=== PATIENT | male | born 1970 | race Hispanic/Latino ===

== ENCOUNTER 2017-10-30 12:33 | Outpatient (CLI) | payer OTHER ==
--- NOTE | 2017-10-30 14:38 | ULT ---
BILATERAL CAROTID DUPLEX ULTRASOUND WITH SPECTRAL ANALYSIS AND COLORFLOW EVALUATION: 10/30/2017 HISTORY: Dizziness. Syncope. FINDINGS: Degroot-scale, color-flow, Doppler evaluation, and spectral analysis of the bilateral carotid arteries i s performed with 2D imaging. No significant atherosclerotic plaque is seen in the carotid arteries b ilaterally. There is less than 50% maximal stenosis in the bilateral internal carotid arteries according to the p eak systolic velocities and the ICA/CCA ratios. The peak systolic velocity in the right ICA is 87.7 cm per second with an ICA/CCA ratio of 0.9. The peak systolic velocity in the left ICA is 86.3 cm pe r second with an ICA/CCA ratio of 0.9. Antegrade flow is demonstrated in the vertebral arteries bilaterally. IMPRESSION: No hemodynamically significant stenosis in the bilateral internal carotid arteries. POS: [facility]
== END 2017-10-30 12:34 | disposition home or self-care (01) ==
LOC: ULT 12:33
PROVIDERS: ATTEND Family Medicine
DX: R42 Dizziness and giddiness (principal); M34.9 Systemic sclerosis, unspecified; R55 Syncope and collapse; I07.1 Rheumatic tricuspid insufficiency
CPT/HCPCS: 93306; 93880

== ENCOUNTER 2018-11-22 08:37 | Emergency (ER) | payer OTHER, SELFPAY ==
--- NOTE | 2018-11-22 09:36 | RAD ---
FRONTAL VIEW CHEST: INDICATION: Dyspnea. FINDINGS: The lungs are clear of consolidation. There is no effusion or pneumothorax. Cardiac silhouette is n ormal in size. Osseous structures are intact. IMPRESSION: No focal consolidation. POS: [facility]
[2018-11-22 09:47] LABS: #Basophils 0.1 thou/uL (0.0-0.2); #Eosinphils 0.2 thou/uL (0.0-0.7); #Lymphocytes 1.2 thou/uL (1.20-3.40); #Monocytes 0.5 thou/uL (0.11-0.59); %Eosinophils 2.6 % (0.0-10.0); %Lymphocytes 17.2 % (21.0-51.0); %Monocytes 7.1 % (0.0-10.0); %Neutrophils 72.2 % (42.0-75.0); Hemoglobin 16.4 g/dL (14.0-18.0); Mean Corpuscular HGB CONC 34.3 g/dL (32.0-36.0); Mean Corpuscular Hemoglobin 31.2 pg (27.0-31.0); Mean Corpuscular Volume 91.1 fL (78.0-98.0); Platelet Count 246 thou/uL (130-400); Red Blood Cell (RBC) Count 5.25 mill/uL (4.70-6.10)
[2018-11-22 10:13] LABS: ALT (SGPT) 17 U/L (8-55); AST (SGOT) 18 U/L (5-34); Albumin 4.5 g/dL (3.5-5.0); Alkaline Phosphatase 95 U/L (40-110); Anion Gap 12 mmol/L (10-20); BUN (Urea Nitrogen) 13 mg/dL (8.9-20.6); Bilirubin, Total 0.5 mg/dL (0.2-1.2); CK (CPK) 110 U/L (30-200); CKMB 0.8 ng/mL (0-6.6); Calc. Creatinine Clearance 0 mL/min (70-130); Calcium 9.6 mg/dL (7.8-10.44); Carbon Dioxide 27 mmol/L (22-29); Chloride 103 mmol/L (98-107); Estimated GFR-MDRD 77; Globulin 2.6 g/dL (2.4-3.5); Glucose 101 mg/dL (70-105); Lipase 19 U/L (8-78); Potassium 4.3 mmol/L (3.5-5.1); Protein, Total 7.1 g/dL (6.0-8.3); Sodium 138 mmol/L (136-145)
[2018-11-22 12:21] LABS: Troponin I Less than 0.010 ng/mL (< 0.028)
--- NOTE | 2018-11-23 17:22 | EKG ---
Test Reason : Blood Pressure : / mmHG Vent. Rate : 082 BPM Atrial Rate : 082 BPM P-R Int : 152 ms QRS Dur : 106 ms QT Int : 344 ms P-R-T Axes : 000 -29 -26 degrees QTc Int : 401 ms Normal sinus rhythm Incomplete right bundle branch block Septal infarct , age undetermined Possible Lateral infarct , age undetermined Abnormal ECG Confirmed by AGUILAR HERNANDEZ, NISREEN ([id number]), restaurant expeditor GEOREG ASTORGA ([id number]) on 11/23/2018 5:22:19 PM Referred By: Confirmed By:NISREEN SHEIKH MD
== END 2018-11-22 12:34 | disposition home or self-care (01) ==
LOC: ERS 08:37
DX: R07.89 Other chest pain (principal)
CPT/HCPCS: 36415; 71045; 80053; 82550; 82553; 83690; 83880; 84484; 85025; 85379; 93005